=== PATIENT | female | born 1935 | race Two or more races ===

== ENCOUNTER 2020-08-22 20:20 | Emergency (ER) | payer MEDICARE ==
[~2020-08-22] VITALS: Ht 152.4 cm; Wt 61.4 kg
--- NOTE | 2020-08-22 20:48 | PHYS DOC ---
Adult General Chief Complaint Chief Complaint: HYPOTENSION HPI HPI Patient is a 84-year-old female presents to the emergency department chief complaint of high blood pressure at home today, patient also states that she blacked out twice yesterday, patient also states she thinks her something going on with her diabetes. Patient was unsure exactly how high her blood pressure was today at home, she does states that it was higher than normal. Patient denies chest pains, shortness of breath, chest congestion or nasal congestion, denies nausea, vomiting, diarrhea, abdominal pain, constipation, or urinary tract infection type signs or symptoms. Patient does report "a slight headache "denies any current dizziness or visual changes, states this is not the worst headache of her life, denies a thunderclap onset of headache, but does states she feels "lightheaded ". Patient reports seeing a Dr. Dorota Dejesus at [facility] for primary care. Patient reports taking 81 mg aspirin, coenzyme Q 10, Lexapro, Pepcid, Apresoline, HydroDIURIL, lorazepam, losartan, Glucophage XR, Pravachol, and vitamin B12. Patient reports allergies to Keflex codeine iodine penicillin and tetracycline. Patient denies any other physical complaints or physical concerns. (DEACON KEARNS APRN) Review of Systems Review of Systems 14 body systems of review of systems have been reviewed. See HPI for pertinent positives and negative responses, otherwise all other systems are negative, nonpertinent or noncontributory. (DEACON KEARNS APRN) Physical Exam Physical Exam Constitutional: Well developed, well nourished, no acute distress, non-toxic appearance. Age-appropriate 84-year-old female no apparent distress, ambulates with steady gait HENT: Normocephalic, atraumatic, bilateral external ears normal, oropharynx moist, no oral exudates, nose normal. Bilateral TMs within normal limits, no lymphadenopathy of the head or neck. Eyes: PERRLA, EOMI, conjunctiva normal, no discharge. Neck: Normal range of motion, no tenderness, supple, no stridor. No nuchal rigidity, no meningismus signs. Cardiovascular:Heart rate regular rhythm, no murmur to auscultation. Lungs & Thorax: Bilateral breath sounds clear to auscultation no adventitious lung sounds appreciated. Abdomen: Bowel sounds normal, soft, no tenderness, no masses, no pulsatile masses. Skin: Warm, dry, no erythema, no rash. Back: No tenderness, no CVA tenderness. Extremities: No tenderness, no cyanosis, no clubbing, ROM intact, no edema. Neurologic: Alert and oriented X 3, normal motor function, normal sensory function, no focal deficits noted. Psychologic: Affect normal, judgement normal, mood normal. (DEACON KEARNS APRN) EKG EKG [] (DEACON KEARNS APRN) Radiology/Procedures Radiology/Procedures [] (DEACON KEARNS APRN) Heart Score C/O Chest Pain: No Risk Factors: Risk Factors: DM, Current or recent (<one month) smoker, HTN, HLP, family history of CAD, obesity. Risk Scores: Risk Factors: DM, Current or recent (<one month) smoker, HTN, HLP, family history of CAD, obesity. (DEACON KEARNS APRN) Course & Med Decision Making Course & Med Decision Making Pertinent Labs and Imaging studies reviewed. (See chart for details) 84-year-old female, vital signs reviewed, presents emergency department complaining of high blood pressure, blacking out spells, and diabetes problems. Patient is nontoxic in appearance, physical examination was unremarkable, patient's blood pressure was 200/90, with patient's complaint of syncopal episodes will order CT head without contrast, cardiorespiratory work-up, urinalysis assay. Repeat blood pressure 164/73, patient states that she is feeling better however she still has a slight headache, will give 1 g Tylenol and 600 mg ibuprofen p.o. Patient's CT head without contrast unremarkable, patient's cardiorespiratory lab work-up unremarkable, the patient's urine is not infected. Discussed findings with patient, discussed strict follow-up with primary care tomorrow or the next day, and return to ER precautions or concerns, discussed staying well- hydrated. Patient states she feels safe going home. Patient gave verbal understanding of discharge home instructions, follow-up with PCP tomorrow the next day, return to ER precautions and concerns, patient had no further questions or concerns and was discharged home without incident. (DEACON KEARNS APRN) Course & Med Decision Making Did not see or evaluate patient. Agree with MERCURY WASHER's work-up and disposition per note. (CHET MCDERMOTT MD) Dragon Disclaimer Dragon Disclaimer This electronic medical record was generated, in whole or in part, using a voice recognition dictation system. (DEACON KEARNS APRN) Departure Departure: Impression: Primary Impression: Headache Additional Impressions: Syncopal episodes Hypertension Disposition: HOME / SELF CARE / HOMELESS Condition: GOOD Referrals: DOROTA DEJESUS MD (PCP) Additional Instructions: You were seen in the emergency department today for a headache, high blood pressure, and syncopal episodes. A CT of your head did not show any concerning findings of stroke or bleeding of the brain. Your blood pressure normalized while in the emergency department without any specific blood pressure treatment. Your headache was treated with Tylenol and Motrin while in the emergency department. As we discussed, please stay well-hydrated during the hot summer months. Please follow-up with your primary care physician Dr. Dejesus tomorrow or the next day for ongoing evaluation of your hypertension problems at home. Please return immediately to the emergency department for worsening symptoms, more syncopal episodes, or other concerns. EMERGENCY DEPARTMENT GENERAL DISCHARGE INSTRUCTIONS Thank you for coming to [facility] (ED) today and trusting us with you care. We trust that you had a positivie experience in our Emergency Department. If you wish to speak to the department management, you may call the director at [phone]. YOUR FOLLOW UP INSTRUCTIONS ARE FOLLOWS: 1. Do you have a private Doctor? If you do not have a private doctor, please ask for a resource list of physicians or clinics that may be able to assist you with follow up care. 2. The Emergency Physician has interpreted your x-rays. The X-Ray specialist will also review them. If there is a change in the findings, you will be notified in 48 hours when at all possible. 3. A lab test or culture has been done, your results will be reviewed and you will be notified if you need a change in treatment. ADDITIONAL INSTRUCTIONS AND INFORMATION: 1. Your care today has been supervised by a physician who is specially trained in emergency care. Many problems require more than one evaluation for a complete diagnosis and treatment. We recommend that you schedule your follow up appointment as recommended to ensure complete treatment of you illness or injury. If you are unable to obtain follow up care and continue to have a problem, or if your condition worsens, we recommend that you return to the ED. 2. We are not able to safely determine your condition over the phone nor are we able to give sound medical advice over the phone. For these safety reasons, if you call for medical advice we will ask you to come to the ED for further evaluation. 3. If you have any questions regarding these discharge instructions please call the ED at [phone]. SAFETY INFORMATION: In the interest of safety, wellness, and injury prevention; we encourage you to wear your sealbelt, if you smoke; quite smoking, and we encourage family to use a protective helmet for bicycling and other sporting events that present an increased risk for head injury. IF YOUR SYMPTOMS WORSEN OR NEW SYMPTOMS DEVELOP, OR YOU HAVE CONCERNS ABOUT YOUR CONDITION; OR IF YOUR CONDITION WORSENS WHILE YOU ARE WAITING FOR YOUR FOLLOW UP APPOINTMENT; EITHER CONTACT YOUR PRIMARY CARE DOCTOR, THE PHYSICIAN WHOSE NAME AND NUMBER YOU WERE GIVEN, OR RETURN TO THE ED IMMEDIATELY. Problem Qualifiers Primary Impression: Headache Headache type: unspecified Headache chronicity pattern: unspecified pattern Intractability: not intractable Qualified Codes: R51.9 - Head ache, unspecified Additional Impressions: Syncopal episodes Syncope type: unspecified Qualified Codes: R55 - Syncope and collapse Hypertension Hypertension type: unspecified Qualified Codes: I10 - Essential (primary) hypertension DEACON KEARNS APRN Aug 22, 2020 20:48 CHET MCDERMOTT MD Aug 22, 2020 22:33
[2020-08-22 21:22] LABS: BASO # 0.1 x10^3/uL (0.0-0.2); BASO % 1 % (0-3); EOS # 0.1 x10^3/uL (0.0-0.7); EOS % 1 % (0-3); HEMATOCRIT 35.4 % (36.0-47.0); HEMOGLOBIN 11.7 g/dL (12.0-15.5); LYMPH # 4.6 x10^3/uL (1.0-4.8); LYMPH % 47 % (24-48); MEAN CORPUSCULAR HEMOGLOBIN 30 pg (25-35); MEAN CORPUSCULAR HGB CONC 33 g/dL (31-37); MEAN CORPUSCULAR VOLUME 92 fL (79-100); MONO # 0.8 x10^3/uL (0.0-1.1); MONO % 9 % (0-9); NEUT # 4.1 x10^3uL (1.8-7.7); NEUT % 42 % (31-73); PLATELET COUNT 304 x10^3/uL (140-400); RED BLOOD COUNT 3.86 x10^6/uL (3.50-5.40); RED CELL DISTRIBUTION WIDTH 13.1 % (11.5-14.5); WHITE BLOOD COUNT 9.8 x10^3/uL (4.0-11.0)
[2020-08-22 21:26] LABS: BILIRUBIN,URINE NEG (NEG); CLARITY,URINE CLEAR; COLOR,URINE YELLOW; GLUCOSE,URINE NEG (NEG); NITRITE,URINE NEG (NEG); RBC,URINE 0 /HPF (0-2); UROBILINOGEN,URINE 0.2 mg/dL (0.2 mg/dL)
[2020-08-22 21:27] LABS: BACTERIA,URINE FEW /HPF (0-FEW); SQUAMOUS EPITHELIAL CELL,UR OCC /LPF
--- NOTE | 2020-08-22 21:27 | RAD ---
Exam: Chest 2 views INDICATION: Syncopal episode TECHNIQUE: Frontal and lateral views the chest Comparisons: None FINDINGS: The cardiomediastinal silhouette and pulmonary vessels are within normal limits. The lung and pleural spaces are clear. IMPRESSION: No acute cardiopulmonary process. Electronically signed by: Lauren Morelos MD (08/22/2020 9:25 PM) [facility]
[2020-08-22 21:33] VITALS: BP 164/73
--- NOTE | 2020-08-22 21:33 | RAD ---
CT HEAD/BRAIN WO History: Reason: Syncopal episode / Spl. Instructions: / History: Comparison: None. Technique: Noncontrast CT imaging was performed of the head. Exposure: One or more of the following individualized dose reduction techniques were utilized for thi s examination: 1. Automated exposure control 2. Adjustment of the mA and/or kV according to patient size 3. Use of iterative reconstruction technique. Findings: No intracranial hemorrhage. No mass effect. No hydrocephalus. Mild brain parenchymal volume loss. Mild foci of decreased attenuation within hemispheric white matte r, most often due to chronic microvascular ischemia. Intracranial atheromatous calcifications. Imaged orbits are unremarkable. Imaged paranasal sinuses and mastoid air cells are clear. No acute ca lvarial fracture. Impression: 1. No acute intracranial abnormality. Electronically signed by: Patrick López DO (08/22/2020 9:31 PM) [facility]
[2020-08-22 21:44] LABS: ALBUMIN 4.1 g/dL (3.4-5.0); ALBUMIN/GLOBULIN RATIO 1.1 (1.0-1.7); CALCIUM 9.4 mg/dL (8.5-10.1); CREATININE 0.8 mg/dL (0.6-1.0); GFR 68.3; PHOSPHORUS 4.1 mg/dL (2.6-4.7); POTASSIUM 3.4 mmol/L (3.5-5.1); TOTAL BILIRUBIN 0.3 mg/dL (0.2-1.0); TOTAL PROTEIN 7.9 g/dL (6.4-8.2)
[2020-08-22] MEDS ORDERED: IBUPROFEN 600 MG TABLET. PO ONE ×2 (22:07→22:15)
[2020-08-22] MEDS ORDERED: ACETAMINOPHEN 500 MG TABLET PO ONE ×2 (22:07→22:15)
--- NOTE | 2020-08-23 21:33 | EKG ---
[address] [address] Test Date: 2020-08-22 Test Time: 20:51:31 Pat Name: KENYATTA AGUILAR Department: Room: Gender: F Clinical Resource Coordinator: RACHELL : 1935 Requested By: DEACON KEARNS Order Number: [id number] Reading MD: Measurements Intervals [place] Rate: 92 P: -54 MI: 146 QRS: 49 QRSD: 74 T: 43 QT: 378 QTc: 473 Interpretive Statements SINUS RHYTHM NORMAL ECG RI6.02 No previous ECG available for comparison
== END 2020-08-22 22:15 | disposition home or self-care (01) ==
LOC: ER 20:20
DX: R51.9 Headache, unspecified (principal); R55 Syncope and collapse; I10 Essential (primary) hypertension; Z88.1 Allergy status to other antibiotic agents
CPT/HCPCS: 36415; 70450; 71046; 80053; 81001; 82553; 83735; 84100; 84484; 85025; 87086; 93005; 99285-25